=== PATIENT | female | born 1990 | race Caucasian/White ===

== ENCOUNTER 2022-06-14 18:40 | Inpatient (IN) | payer MEDICAID, SELFPAY ==
[2022-06-14] VITALS (14 sets, daily range): BP systolic 108–138; BP diastolic 63–82; PULSE 72–98; RESP 14–17; TEMP 36.6–36.8; O2SAT 97; BMI 28.3
[2022-06-14] MEDS: lactated ringers 1,000 ML 125 ML IV (18:40)
[2022-06-14 18:50] LABS: Basophils # 0.1 10^3/uL (0.0-0.1); Basophils % 0.4 %; Eosinophils % 0.3 %; Hematocrit 37.9 % (37.0-47.0); Lymphocytes # 2.1 10^3/uL (0.8-4.8); Mean Corpuscular HGB Conc 31.7 g/dL (30.0-36.0); Mean Corpuscular Hemoglobin 29.6 pg (28.0-34.0); Mean Corpuscular Volume 93.3 fl (81-99); Monocytes % 6.9 %; Neutrophils # 11.77 10^3/uL (1.8-7.7); Nucleated Red Blood Cells % 0 %; Platelet Count 246 10^3/cmm (130-400); Red Blood Count 4.06 10^6/uL (4.1-5.3); Red Cell Distribution Width 12.5 % (12.1-15.1); White Blood Count 15.1 10^3/uL (4.0-10.0)
[2022-06-14] MEDS: oxytocin 30 UNIT/500 ML BAG 600 UNIT IV (18:56)
--- NOTE | 2022-06-14 19:11 | PM.OPHPUD ---
Labor & Delivery H&P Update Date of Procedure: June 14, 2022 Date H&P Performed: 06/13/22 Changes to previous documentation: The patient arrived at 9 cm dilated with a bulging bag of water Admission Diagnosis: 31-year-old 5 para 4-0-0-4 at 39 weeks and 6 days presenting in active labor Planned procedure: Spontaneous vaginal delivery Other information: The patient presented to the hospital after having contractions for several hours at home. Otherwise, her had been relatively unremarkable. Her labs have also been relatively unremarkable. Her blood type was A-. Her antibody screen was negative. She is rubella immune. She is GBS negative. The remainder of her infectious disease profile was within normal limits.
--- NOTE | 2022-06-14 19:14 | PM.DELIVERY ---
Delivery Note: Date of delivery: June 14, 2022 Pre-delivery diagnoses: 31-year-old 5 para 4-0-0-4 at 39 weeks estimated gestational age presenting in active labor Post-delivery diagnoses: Status post spontaneous vaginal delivery Procedure: Spontaneous vaginal delivery Delivering Physician: Medhat Burr Estimated blood loss (mL): 150 Pre-Delivery Course: The patient presented to the hospital in active labor. She was found to be 9 cm dilated with a bulging bag of water. Shortly after arriving, when she pushed her amniotic sac ruptured. She was then noted to be complete. Delivery: DELIVERY: The patient progressed to complete without difficulty. She delivered a female with a weight of 7 pounds 7 ounces with Apgars of 10, 10. The baby was delivered from the CHRISTINA position. The baby's mouth and nose were suctioned at the site of the perineum. The baby was then completely delivered and placed on the mother's abdomen. The cord was then clamped and cut. There was no nuchal cord. There was light meconium. The placenta and 3 vessel cord were delivered intact shortly thereafter. The perineum and vaginal vault were carefully examined. No lacerations were noted. Both the mother and the baby were in stable condition. Post-Delivery Status: Good A&P Assessment and plan (1) 39 weeks gestation of : (2) Vaginal delivery: I anticipate routine care. She plans to breast-feed. Coding Level of Care Code Acute Senior Agricultural Assistant for Chg Fwd Diagnoses 39 weeks gestation of Z3A.39 Vaginal delivery O80
[2022-06-15] VITALS (8 sets, daily range): BP systolic 106–126; BP diastolic 72–82; PULSE 74–86; RESP 16–17; TEMP 36.7–36.8; O2SAT 97–99
--- NOTE | 2022-06-15 06:28 | P.DS_ITS ---
Discharge Providers INFORMATION SECURITY SPECIALIST Date of Admission: 06/14/22 18:40 Date of Discharge: 06/15/22 Attending Provider at Admission: Medhat Burr MD Attending Provider at Discharge: Medhat Burr MD Diagnoses at Discharge Discharge Diagnosis (1) 39 weeks gestation of : Status: Acute (2) Vaginal delivery: Status: Acute Reason for Visit Reason for Visit: contractions Hospital Course Hospital Course The patient presented to the hospital in active labor. When she was checked she was found to be 9 cm. Shortly after that she had spontaneous rupture of membranes and had an unremarkable delivery of a healthy-appearing female . The delivery was uncomplicated. Her bleeding was within normal limits. Her course was also unremarkable. She had significant uterine pain with breast-feeding, but otherwise had an unremarkable course. Her bleeding was within normal limits. Her pain was well controlled. Her hemoglobin is pending. Information Peripartum Data: Delivery Method: Vaginal Physical Exam Narrative: The patient is alert. She appears comfortable. Her heart has a regular rate and rhythm with no murmurs appreciated. Lungs are clear to auscultation bilaterally. Her fundus is firm and below the umbilicus. Discharge Data Studies Completed and Pending Pending at discharge Category Date Time Status Hemagram Timed Lab 06/15/22 07:10 Uncollected Laboratory Results WBC 15.1 10^3/uL (4.0-10.0) H 06/14/22 18:35 RBC 4.06 10^6/uL (4.1-5.3) L 06/14/22 18:35 Hgb 12.0 g/dL (11.5-15.3) 06/14/22 18:35 Hct 37.9 % (37.0-47.0) 06/14/22 18:35 MCV 93.3 fl (81-99) 06/14/22 18:35 MCH 29.6 pg (28.0-34.0) 06/14/22 18:35 MCHC 31.7 g/dL (30.0-36.0) 06/14/22 18:35 RDW 12.5 % (12.1-15.1) 06/14/22 18:35 Plt Count 246 10^3/cmm (130-400) 06/14/22 18:35 MPV 10.0 fL (7.4-10.4) 06/14/22 18:35 Neut % (Auto) 78.0 % 06/14/22 18:35 Lymph % (Auto) 14.0 % 06/14/22 18:35 Knott % (Auto) 6.9 % 06/14/22 18:35 Eos % (Auto) 0.3 % 06/14/22 18:35 Baso % (Auto) 0.4 % 06/14/22 18:35 Neut # (Auto) 11.77 10^3/uL (1.8-7.7) H 06/14/22 18:35 Lymph # (Auto) 2.1 10^3/uL (0.8-4.8) 06/14/22 18:35 Knott # (Auto) 1.0 10^3/uL (0.2-0.9) H 06/14/22 18:35 Eos # (Auto) 0.0 10^3/uL (0.0-0.8) 06/14/22 18:35 Baso # (Auto) 0.1 10^3/uL (0.0-0.1) 06/14/22 18:35 Nucleated RBC % (auto) 0 % 06/14/22 18:35 Nucleated RBCs # 0.0 /100WBC 06/14/22 18:35 Blood Type A Negative 06/14/22 18:35 Rho(D) Type Negative 06/14/22 18:35 Antibody Screen Positive 06/14/22 18:35 Antibody Identification Anti-D 06/14/22 18:35 Vitals Last Vital Signs Temp 98.2 F 06/15/22 04:30 Pulse 74 06/15/22 04:30 Resp 17 06/15/22 04:30 BP 119/78 06/15/22 04:30 Pulse Ox 99 06/15/22 04:30 O2 Del Method 06/15/22 04:30 Discharge Plan Discharge Patient Disposition: Home Condition: Stable Prescriptions: New ibuprofen 800 mg Tablet 800 mg PO TID Qty: 45 0RF -U 106.5-1 mg Capsule 1 cap PO DAILY Qty: 100 1RF Discontinued norethindrone (contraceptive) [Jencycla] 0.35 mg tablet 0.35 mg PO DAILY Qty: 84 0RF Discharge Orders: Discharge Order (Routine); Ordered 06/15/22 Ordered By: Medhat Burr Referrals: Adiel Shearer MD [Physician] - 2 weeks (Desires a laparoscopic tubal ligation) Medhat Burr MD [Physician] - 6 Weeks (Routine check) Discharge Diet: Usual diet Discharge Activity: Limit activity as instructed Patient Instructions: Opioid Safety Discharge Attestations INFORMATION SECURITY SPECIALIST Time Spent in Discharge Care*: less than 30 min Coding Level of Care Code Acute Hotel Services Supervisor for Chg Fwd Diagnoses 39 weeks gestation of Z3A.39 Vaginal delivery O80
[2022-06-15 07:00] LABS: Hematocrit 32.7 % (37.0-47.0); Hemoglobin 10.7 g/dL (11.5-15.3); Mean Corpuscular HGB Conc 32.7 g/dL (30.0-36.0); Mean Corpuscular Hemoglobin 29.4 pg (28.0-34.0); Mean Corpuscular Volume 89.8 fl (81-99); Mean Platelet Volume 9.7 fL (7.4-10.4); Platelet Count 194 10^3/cmm (130-400); Red Blood Count 3.64 10^6/uL (4.1-5.3); Red Cell Distribution Width 12.3 % (12.1-15.1); White Blood Count 12.9 10^3/uL (4.0-10.0)
[2022-06-15] MEDS: ibuprofen 800 mg tablet PO ×2 (08:47→15:41)
[2022-06-15] MEDS: prenatal vitamin Capsule 1 CAP PO (08:47)
[2022-06-15] MEDS: docusate sodium 100 mg Capsule PO (08:47)
== END 2022-06-15 19:55 | disposition home or self-care (01) | DRG 807 ==
LOC: OPOB 18:54 → OBGYN 18:54
PROVIDERS: Admitting Provider Family Medicine; Visit Provider Family Medicine
DX: O99.334 Smoking (tobacco) complicating childbirth (principal); Z37.0 Single live birth; F17.200 Nicotine dependence, unspecified, uncomplicated; Z3A.39 39 weeks gestation of pregnancy
CPT/HCPCS: 12345; 36415; 36430; 59025; 59409; 80503; 85025; 85027; 85460; 86850; 86870; 86900; 90384; 98960; 99211; J2590; J7120